=== PATIENT | female | born 1990 | race American Indian/Alaskan Native ===

== ENCOUNTER 2017-06-08 21:45 | Emergency (ER) | payer SELFPAY ==
[2017-06-08 22:12] VITALS: BP 148/94
== END 2017-06-08 22:30 | disposition left against medical advice (07) ==
LOC: ED 21:45
DX: R20.0 Anesthesia of skin (principal); Z53.21 Procedure and treatment not carried out due to patient leaving prior to being seen by health care provider
CPT/HCPCS: 82962

== ENCOUNTER 2019-06-09 15:46 | Emergency (ER) | payer SELFPAY ==
--- NOTE | 2019-06-09 16:28 | XRay Report ---
CHEST 2 VIEWS INDICATION / CLINICAL INFORMATION: Chest Pain. COMPARISON: None available. FINDINGS: SUPPORT DEVICES: None. HEART / MEDIASTINUM: No significant abnormality. LUNGS / PLEURA: No significant pulmonary or pleural abnormality. No pneumothorax. ADDITIONAL FINDINGS: No significant additional findings. IMPRESSION: No significant abnormality Signer Name: Dread Brooks MD FACR Signed: 06/09/2019 4:24 PM Workstation Name: [id number]
[2019-06-09 16:51] LABS: Basophils % (Auto) 0.6 % (0.0-1.8); Eosinophils % (Auto) 0.2 % (0.0-4.3); Hematocrit 38.1 % (30.3-42.9); Hemoglobin 12.8 gm/dl (10.1-14.3); Lymphocytes % (Auto) 30.3 % (13.4-35.0); Mean Corpuscular HGB Conc 34 % (30-34); Mean Corpuscular Volume 85 fl (79-97); Monocytes # (Auto) 0.3 K/mm3 (0.0-0.8); Monocytes % (Auto) 8.1 % (0.0-7.3); Platelet Count 207 K/mm3 (140-440); Red Blood Count 4.51 M/mm3 (3.65-5.03); Red Cell Distribution Width 14.4 % (13.2-15.2)
[2019-06-09 17:04] LABS: Alanine Aminotransferase 6 units/L (7-56); Albumin 4.6 g/dL (3.9-5); BUN/Creatinine Ratio 9; Blood Urea Nitrogen 8 mg/dL (7-17); Calcium 9.7 mg/dL (8.4-10.2); Hemolysis Index 3
[2019-06-09] MEDS ORDERED: SODIUM CHLORIDE 0.9% 1000 ML 1,000 ML IV ONE (17:38)
--- NOTE | 2019-06-09 18:42 | Emergency Department Report ---
ED General Adult HPI - General Chief complaint: Dyspnea/Respdistress Stated complaint: ASHLIE Time Seen by Provider: 06/09/19 16:48 Source: patient Mode of arrival: Ambulatory Limitations: No Limitations - History of Present Illness Initial comments: Patient is a 28-year-old F [place] female with no significant past medical history who is presenting with shortness of breath. Patient states that for the past 4 to 5 days she has had shortness of breath and palpitations. She states it started after walking outside. Patient has been socially distancing herself from people for approximately 3 weeks and she works from home. She walked outside several days ago and stated that she could not breathe. States she sneezed just once or twice. She denies cough or history of asthma. Patient states that symptoms started to worsen today so she came to the hospital. She denies fevers chills nausea vomiting diarrhea at this time. Severity scale (0 -10): 0 - Related Data Previous Rx's Medication Instructions Recorded Last Taken Type Albuterol INH(or & Nicu Only) 2 puff IH QID PRN #1 inhalation 06/09/19 Unknown Rx [ProAir HFA Inhaler] Fluticasone [Flonase] 1 spray NS QDAY #1 bottle 06/09/19 Unknown Rx Allergies Allergy/AdvReac Type Severity Reaction Status Date / Time No Known Allergies Allergy Unverified 06/08/17 22:12 ED Review of Systems ROS: Stated complaint: ASHLIE Other details as noted in HPI Comment: All other systems reviewed and negative ED Past Medical Hx - Past Medical History Previous Medical History?: Yes Hx Psychiatric Treatment: Yes (Anxiety, Depression) - Surgical History Past Surgical History?: No - Social History Smoking Status: Never Smoker Substance Use Type: Alcohol - Medications Home Medications: Home Medications Medication Instructions Recorded Confirmed Last Taken Type Albuterol INH(or & Nicu Only) 2 puff IH QID PRN #1 inhalation 06/09/19 Unknown Rx [ProAir HFA Inhaler] Fluticasone [Flonase] 1 spray NS QDAY #1 bottle 06/09/19 Unknown Rx ED Physical Exam - General Limitations: No Limitations General appearance: alert, in no apparent distress - Head Head exam: Present: atraumatic, normocephalic - Eye Eye exam: Present: normal appearance - ENT ENT exam: Present: mucous membranes moist - Neck Neck exam: Present: normal inspection - Respiratory Respiratory exam: Present: normal lung sounds bilaterally. Absent: respiratory distress, wheezes, rales, rhonchi - Cardiovascular Cardiovascular Exam: Present: normal rhythm, tachycardia (140-150). Absent: systolic murmur, diastolic murmur, rubs, gallop - GI/Abdominal GI/Abdominal exam: Present: soft, normal bowel sounds. Absent: distended, tenderness, guarding, rebound - Extremities Exam Extremities exam: Present: normal inspection - Back Exam Back exam: Present: normal inspection - Neurological Exam Neurological exam: Present: alert, oriented X3 - Psychiatric Psychiatric exam: Present: normal affect, normal mood - Skin Skin exam: Present: warm, dry, intact, normal color. Absent: rash ED Course Vital Signs 06/09/19 06/09/19 15:50 17:18 Temperature 98.7 F 99.3 F Pulse Rate 160 H 106 H Respiratory 20 18 Rate Blood Pressure 131/89 Blood Pressure 157/107 [Left] Blood Pressure 126/101 [Right] O2 Sat by Pulse 100 99 Oximetry ED Medical Decision Making - Lab Data Result diagrams: 06/09/19 16:40 06/09/19 16:40 Lab Results 06/09/19 06/09/19 06/09/19 Range/Units 16:40 16:40 16:40 WBC 3.3 L (4.5-11.0) K/mm3 RBC 4.51 (3.65-5.03) M/mm3 Hgb 12.8 (10.1-14.3) gm/dl Hct 38.1 (30.3-42.9) % MCV 85 (79-97) fl MCH 29 (28-32) pg MCHC 34 (30-34) % RDW 14.4 (13.2-15.2) % Plt Count 207 (140-440) K/mm3 Lymph % (Auto) 30.3 (13.4-35.0) % [place] % (Auto) 8.1 H (0.0-7.3) % Eos % (Auto) 0.2 (0.0-4.3) % Baso % (Auto) 0.6 (0.0-1.8) % Lymph # 1.0 L (1.2-5.4) K/mm3 [place] # 0.3 (0.0-0.8) K/mm3 Eos # 0.0 (0.0-0.4) K/mm3 Baso # 0.0 (0.0-0.1) K/mm3 Seg Neutrophils % 60.8 (40.0-70.0) % Seg Neutrophils # 2.0 (1.8-7.7) K/mm3 D-Dimer (0-234) ng/mlDDU Sodium 140 (137-145) mmol/L Potassium 3.7 (3.6-5.0) mmol/L Chloride 103.6 (98-107) mmol/L Carbon Dioxide 23 (22-30) mmol/L Anion Gap 17 mmol/L BUN 8 (7-17) mg/dL Creatinine 0.9 (0.7-1.2) mg/dL Estimated GFR > 60 ml/min BUN/Creatinine Ratio 9 % Glucose 98 (65-100) mg/dL Calcium 9.7 (8.4-10.2) mg/dL Magnesium 1.90 (1.7-2.3) mg/dL Total Bilirubin 0.60 (0.1-1.2) mg/dL AST 12 (5-40) units/L ALT 6 L (7-56) units/L Alkaline Phosphatase 63 (35-129) units/L Total Creatine Kinase 108 (30-135) units/L Total Protein 7.6 (6.3-8.2) g/dL Albumin 4.6 (3.9-5) g/dL Albumin/Globulin Ratio 1.5 % TSH 2.040 (0.270-4.200) mlU/mL HCG, Qual (Negative) Plasma/Serum Alcohol (0-0.07) % 06/09/19 06/09/19 06/09/19 Range/Units 16:40 16:40 17:43 WBC (4.5-11.0) K/mm3 RBC (3.65-5.03) M/mm3 Hgb (10.1-14.3) gm/dl Hct (30.3-42.9) % MCV (79-97) fl MCH (28-32) pg MCHC (30-34) % RDW (13.2-15.2) % Plt Count (140-440) K/mm3 Lymph % (Auto) (13.4-35.0) % [place] % (Auto) (0.0-7.3) % Eos % (Auto) (0.0-4.3) % Baso % (Auto) (0.0-1.8) % Lymph # (1.2-5.4) K/mm3 [place] # (0.0-0.8) K/mm3 Eos # (0.0-0.4) K/mm3 Baso # (0.0-0.1) K/mm3 Seg Neutrophils % (40.0-70.0) % Seg Neutrophils # (1.8-7.7) K/mm3 D-Dimer 135.00 (0-234) ng/mlDDU Sodium (137-145) mmol/L Potassium (3.6-5.0) mmol/L Chloride (98-107) mmol/L Carbon Dioxide (22-30) mmol/L Anion Gap mmol/L BUN (7-17) mg/dL Creatinine (0.7-1.2) mg/dL Estimated GFR ml/min BUN/Creatinine Ratio % Glucose (65-100) mg/dL Calcium (8.4-10.2) mg/dL Magnesium (1.7-2.3) mg/dL Total Bilirubin (0.1-1.2) mg/dL AST (5-40) units/L ALT (7-56) units/L Alkaline Phosphatase (35-129) units/L Total Creatine Kinase (30-135) units/L Total Protein (6.3-8.2) g/dL Albumin (3.9-5) g/dL Albumin/Globulin Ratio % TSH (0.270-4.200) mlU/mL HCG, Qual Negative (Negative) Plasma/Serum Alcohol < 0.01 (0-0.07) % - Medical Decision Making Patient is a 28-year-old F [place] female is presenting with shortness of breath and was very tachycardic on arrival. Patient was given some IV fluids and encouraged her to be positive while we waited for laboratory studies to come back. Before even hearing the patient was results her heart rate is decreased to 90. Patient states she just feels as though she might of been nervous that something was wrong with her lungs given the coronavirus pandemic. Patient is hemoglobin is within normal limits making anemia not the cause of her tachycardia. Patient's TSH is within normal limits ruling out thyroid dysfunction. D-dimer is normal making pulmonary embolus less likely. Patient patient to be treated for seasonal allergies. This is likely the cause of the patient's lung irritation after walking outside as the pollen count is greater than [phone] Critical care attestation.: If time is entered above; I have spent that time in minutes in the direct care of this critically ill patient, excluding procedure time. ED Disposition Clinical Impression: Tachycardia, Allergic rhinitis, Pleurisy, Anxiety Disposition: DC- TO HOME OR SELFCARE Is pt being admited?: No Does the pt Need Aspirin: No Condition: Stable Instructions: Anxiety (ED), Allergic Rhinitis (ED) Additional Instructions: Please take Zyrtec or Claritin daily for seasonal allergies Referrals: PRIMARY CARE, [Primary Care Provider] - 3-5 Days Time of Disposition: 18:44
[2019-06-09 19:23] VITALS: BP 111/70
== END 2019-06-09 19:21 | disposition home or self-care (01) ==
LOC: ED 15:46
DX: J30.89 Other allergic rhinitis (principal); R09.1 Pleurisy; R00.0 Tachycardia, unspecified; F32.89 Other specified depressive episodes; F41.9 Anxiety disorder, unspecified
CPT/HCPCS: 36415; 71046; 80053; 82550; 83735; 84443; 84703; 85025; 85379; 93005; 93010; 99283; J7030; 80320; G0480

== ENCOUNTER 2019-06-25 22:03 | Emergency (ER) | payer SELFPAY ==
[2019-06-25 22:13] VITALS: BP 123/79
--- NOTE | 2019-06-25 23:37 | XRay Report ---
CHEST 2 VIEWS INDICATION / CLINICAL INFORMATION: Shortness of breath. COMPARISON: 06/09/19 FINDINGS: SUPPORT DEVICES: None. HEART / MEDIASTINUM: No significant abnormality. LUNGS / PLEURA: No significant pulmonary or pleural abnormality. No pneumothorax. ADDITIONAL FINDINGS: No significant additional findings. IMPRESSION: 1. No acute findings. No change. Signer Name: Cecilio Christensen MD Signed: 06/25/2019 11:32 PM Workstation Name: [id number]
--- NOTE | 2019-06-26 00:20 | Emergency Department Report ---
- General Chief Complaint: Upper Respiratory Infection Stated Complaint: ASHLIE Time Seen by Provider: 06/25/19 22:41 Source: patient Mode of arrival: Ambulatory Limitations: No Limitations - Related Data Previous Rx's Medication Instructions Recorded Last Taken Type Albuterol INH(or & Nicu Only) 2 puff IH QID PRN #1 inhalation 06/09/19 Unknown Rx [ProAir HFA Inhaler] Fluticasone [Flonase] 1 spray NS QDAY #1 bottle 06/09/19 Unknown Rx Allergies Allergy/AdvReac Type Severity Reaction Status Date / Time diphenhydramine Allergy Hives Verified 06/25/19 22:07 [From Benadryl] ED Review of Systems ROS: Stated complaint: ASHLIE Other details as noted in HPI Comment: All other systems reviewed and negative ED Past Medical Hx - Past Medical History Previous Medical History?: Yes Hx Psychiatric Treatment: Yes (Anxiety, Depression) - Surgical History Past Surgical History?: No - Social History Smoking Status: Never Smoker Substance Use Type: None - Medications Home Medications: Home Medications Medication Instructions Recorded Confirmed Last Taken Type Albuterol INH(or & Nicu Only) 2 puff IH QID PRN #1 inhalation 06/09/19 Unknown Rx [ProAir HFA Inhaler] Fluticasone [Flonase] 1 spray NS QDAY #1 bottle 06/09/19 Unknown Rx ED Physical Exam - General Limitations: No Limitations General appearance: alert, in no apparent distress, other (No acute distress patient speaking in full sentences having a very long-winded conversation with no pause. At no time did she appear to dyspneic) - Head Head exam: Present: atraumatic, normocephalic - Eye Eye exam: Present: normal appearance, PERRL, EOMI - ENT ENT exam: Present: normal exam, mucous membranes moist - Neck Neck exam: Present: normal inspection, full ROM - Respiratory Respiratory exam: Present: normal lung sounds bilaterally. Absent: respiratory distress, wheezes, rales, rhonchi, stridor, chest wall tenderness, accessory muscle use, decreased breath sounds, prolonged expiratory - Cardiovascular Cardiovascular Exam: Present: regular rate, normal rhythm. Absent: systolic murmur, diastolic murmur, rubs, gallop - GI/Abdominal GI/Abdominal exam: Present: soft, normal bowel sounds. Absent: distended - Extremities Exam Extremities exam: Present: normal inspection - Back Exam Back exam: Present: normal inspection - Neurological Exam Neurological exam: Present: alert, oriented X3, CN II-XII intact - Psychiatric Psychiatric exam: Present: normal affect, normal mood - Skin Skin exam: Present: warm, dry, intact, normal color. Absent: rash ED Course Vital Signs 06/25/19 22:07 Temperature 98.6 F Pulse Rate 91 H Respiratory 20 Rate Blood Pressure 123/79 O2 Sat by Pulse 100 Oximetry ED Medical Decision Making - Radiology Data Radiology results: report reviewed Referring Physician:BRIANNE LEYVAPatient Name:FRANC JOYAPatient ID:[id number] of :[id number]:FemaleAccession:[id number] Date:[id number] Status:Finalized Findings [address] [address] XRay Report Signed Patient: FRANC JOYA MR#: [id number] : 1990 Acct:[id number] Age/Sex: 28 / F ADM Date: 06/09/19 Loc: ED Attending Dr: Ordering Physician: BRIANNE LEYVA MD Date of Service: 06/09/19 Procedure(s): XR chest routine 2V Accession Number(s): [id number] cc: ED MD AUTUMN Fluoro Time In Minutes: CHEST 2 VIEWS INDICATION / CLINICAL INFORMATION: Chest Pain. COMPARISON: None available. FINDINGS: SUPPORT DEVICES: None. HEART / MEDIASTINUM: No significant abnormality. LUNGS / PLEURA: No significant pulmonary or pleural abnormality. No pneumothorax. ADDITIONAL FINDINGS: No significant additional findings. IMPRESSION: No significant abnormality Signer Name: Dread Brooks MD FACR Signed: 06/09/2019 4:24 PM Workstation Name: [id number] Transcribed By: MS Dictated By: Dread Brooks MD Electronically Authenticated By: Dread Brooks MD Signed Date/Time: 06/09/191623 DD/ 22 TD/TT: - Medical Decision Making 28-year-old F Malaysian female presents emergency department complaining of dyspnea of an unknown etiology. She states that she is not short of breath but feel that she is having trouble taking in a deep breath. She chest x-ray was repeated showed no changes since the previous. States that she feels her symptoms have actually improved and she is now able to go out on her balcony without a lot of respiratory issues she has a strong suspicion for been related to pollen but reports no rhinitis hives or pruritus. No hemoptysis. Presentation not consistent with acute bacterial pneumonia, influenza, asthma, transient airway hyperresponsiveness. Presentation not consistent with chronic causes of cough or dyspnea (including GERD, asthma, postnasal discharge, medication side effect, CHF, lung cancer or mass). Plan: Normal CXR, supportive care, reassess normal vitals Critical care attestation.: If time is entered above; I have spent that time in minutes in the direct care of this critically ill patient, excluding procedure time. ED Disposition Clinical Impression: Dyspnea Disposition: DC-01 TO HOME OR SELFCARE Is pt being admited?: No Does the pt Need Aspirin: No Condition: Stable Instructions: Dyspnea (ED) Additional Instructions: Please obtain some Nasonex or Flonase [id number] for your pollen reaction that you discussed with me previously there is no findings on your x-ray nasal examination at this point time recommend you follow-up with primary care provider or pulmonology as previously discussed on your visit here 2 weeks ago. Names have been listed for your convenience please contact them in the morning to schedule appointment. At this present time there is no urgent or emergent medical condition Referrals: PRIMARY CARE, [Primary Care Provider] - 3-5 Days ROSITA SUTTON MD [Staff Physician] - 3-5 Days GAYATRI HOOPER MD [Staff Physician] - 3-5 Days KENNY ZAMBRANO MD [Staff Physician] - 3-5 Days
== END 2019-06-26 00:15 | disposition home or self-care (01) ==
LOC: ED 22:03
DX: R06.00 Dyspnea, unspecified (principal); R06.02 Shortness of breath; F41.9 Anxiety disorder, unspecified; F32.9 Major depressive disorder, single episode, unspecified; Z79.899 Other long term (current) drug therapy; Z88.8 Allergy status to other drugs, medicaments and biological substances
CPT/HCPCS: 71046